=== PATIENT | female | born 1940 | race Asian ===

== ENCOUNTER → 2017-03-21 | Outpatient (CLI) | payer MEDICARE, OTHER ==
[~2017-03-21] MED LIST: GLUC500T12 PO; MULT1CAP42 PO; OMEP20 PO; PENI500T2 PO; PSEU120T44 PO; SIMV5TAB6 PO; VITAD5000 PO
== END | disposition home or self-care (01) ==
LOC: RADPV 15:14
PROVIDERS: ATTEND Legal Medicine
DX: M17.11 Unilateral primary osteoarthritis, right knee (principal); M76.891 Other specified enthesopathies of right lower limb, excluding foot

== ENCOUNTER 2017-04-19 22:48 | Emergency (ER) | payer MEDICARE, OTHER ==
[~2017-04-19] VITALS: Ht 157.5 cm; Wt 50.9 kg
[~2017-04-19 22:48] MED LIST changes: -PENI500T2 PO; -PSEU120T44 PO
[2017-04-19] MEDS ORDERED: PSEU120T44 PO (22:56)
[2017-04-19] MEDS ORDERED: PENI500T2 PO (22:56)
[2017-04-20 02:12] VITALS: BP 144/74
[2017-04-20] MEDS ORDERED: IBUPROFEN 600 MG TABLET PO ONE (02:15)
[2017-04-20] MEDS ORDERED: CYCLOBENZAPRINE HCL 10 MG TABLET PO ONE (02:15)
== END 2017-04-20 03:20 | disposition home or self-care (01) ==
LOC: EMS 22:50
DX: M62.838 Other muscle spasm (principal); E78.00 Pure hypercholesterolemia, unspecified; K21.9 Gastro-esophageal reflux disease without esophagitis
CPT/HCPCS: 99283

== ENCOUNTER 2017-04-22 15:59 | Emergency (ER) | payer MEDICARE, OTHER ==
[~2017-04-22] VITALS: Ht 165.1 cm; Wt 56.8 kg
[~2017-04-22 15:59] MED LIST changes: +PENI500T2 PO; +PSEU120T44 PO
[2017-04-22] MEDS ORDERED: ACETAMINOPHEN/CODEINE 300-30 MG TABLET PO ONE (17:45)
[2017-04-22 19:58] VITALS: BP 125/69
== END 2017-04-22 20:03 | disposition home or self-care (01) ==
LOC: EMS 16:01
DX: M62.838 Other muscle spasm (principal); E78.00 Pure hypercholesterolemia, unspecified; K21.9 Gastro-esophageal reflux disease without esophagitis
CPT/HCPCS: 72125; 99284

== ENCOUNTER → 2018-09-19 | Outpatient (CLI) | payer MEDICARE, OTHER ==
[~2018-09-19] MED LIST changes: -PENI500T2 PO; +SIMV5TAB59 PO; -SIMV5TAB6 PO
== END | disposition home or self-care (01) ==
LOC: RADPV 10:13
PROVIDERS: ATTEND Legal Medicine
DX: M17.0 Bilateral primary osteoarthritis of knee (principal)

== ENCOUNTER 2019-02-17 16:05 | Emergency (ER) | payer MEDICARE, OTHER ==
[~2019-02-17] VITALS: Ht 157.5 cm; Wt 50.0 kg
[2019-02-17] MEDS ORDERED: LIDOCAINE 5% TRANSDERMAL PATCH TD ONE (16:45)
[2019-02-17] MEDS ORDERED: KETOROLAC TROMETHAMINE 30 MG/ML VIAL IM ONE (16:45)
[2019-02-17] MEDS ORDERED: METHOCARBAMOL 500 MG TABLET PO ONE (16:45)
[2019-02-17 16:50] VITALS: BP 141/80
== END 2019-02-17 17:56 | disposition home or self-care (01) ==
LOC: EMS 16:08
DX: M54.5 Low back pain (principal); M62.830 Muscle spasm of back; Z90.49 Acquired absence of other specified parts of digestive tract; Z79.899 Other long term (current) drug therapy
CPT/HCPCS: 96372; 99283; J1885

== ENCOUNTER → 2019-02-26 | Outpatient (CLI) | payer MEDICARE, OTHER ==
[~2019-02-26] MED LIST changes: -PSEU120T44 PO
== END | disposition home or self-care (01) ==
LOC: RADPV 10:41
PROVIDERS: ATTEND Legal Medicine
DX: M47.816 Spondylosis without myelopathy or radiculopathy, lumbar region (principal); M43.16 Spondylolisthesis, lumbar region; M48.061 Spinal stenosis, lumbar region without neurogenic claudication
CPT/HCPCS: 72100

== ENCOUNTER → 2019-04-22 | Outpatient (CLI) | payer MEDICARE, OTHER | END | disposition home or self-care (01) | LOC: LABPV 15:11 | PROVIDERS: ATTEND Legal Medicine | DX: E87.5 Hyperkalemia (principal) | CPT/HCPCS: 84132 ==

== ENCOUNTER 2019-05-09 19:09 | Emergency (ER) | payer MEDICARE, OTHER ==
[~2019-05-09] VITALS: Ht 157.5 cm; Wt 50.0 kg
[2019-05-09 20:10] LABS: APPEARANCE,URINE CLEAR (CLEAR); BILIRUBIN,URINE NEGATIVE (NEGATIVE); GLUCOSE, URINE (UA) NEGATIVE (NEGATIVE); KETONES,URINE NEGATIVE (NEGATIVE); LEUKOCYTE ESTERASE ,URINE NEGATIVE (NEGATIVE); NITRATE,URINE NEGATIVE (NEGATIVE); OCCULT BLOOD,URINE TRACE (NEGATIVE); PH,URINE 6.5 (5.0-8.0); PROTEIN,URINE NEGATIVE (NEGATIVE); UROBILINOGEN,URINE 0.2 mg/dL (<=1.0)
[2019-05-09 20:20] LABS: BACTERIA,URINE None Seen /HPF (None Seen); WBC,URINE 0-2 /HPF (0-5)
[2019-05-09 20:21] LABS: SQUAMOUS EPITHELIAL CELL,UR Few /LPF (None Seen)
[2019-05-09] MEDS ORDERED: LIDOCAINE 5% TRANSDERMAL PATCH TD ONE (22:30)
[2019-05-09] MEDS ORDERED: CYCLOBENZAPRINE HCL 10 MG TABLET PO ONE (22:30)
[2019-05-09 22:53] VITALS: BP 148/82
== END 2019-05-09 23:08 | disposition home or self-care (01) ==
LOC: EMS 19:10
DX: M54.5 Low back pain (principal); E78.00 Pure hypercholesterolemia, unspecified; K21.9 Gastro-esophageal reflux disease without esophagitis; Z90.49 Acquired absence of other specified parts of digestive tract; Z79.899 Other long term (current) drug therapy

== ENCOUNTER 2023-11-17 09:43 | Emergency (ER) | payer MEDICARE, OTHER ==
[~2023-11-17] VITALS: Ht 152.4 cm; Wt 59.1 kg
[~2023-11-17 09:43] MED LIST changes: +ACET-2247 PO; +LIDO700A15 TP
[2023-11-17] MEDS ORDERED: ATOR10TA PO (09:54)
[2023-11-17 10:29] LABS: BASOPHILS % (AUTO) 0.9 % (0.0-2.0); EOSINOPHILS % (AUTO) 2.5 % (1.0-6.0); HEMATOCRIT 36.6 % (36-46); HEMOGLOBIN 11.9 g/dL (12.0-16.0); LYMPHOCYTES # (AUTO) 1.2 K/uL (1.0-4.8); LYMPHOCYTES % (AUTO) 16.9 % (22.0-44.0); MEAN CORPUSCULAR HEMOGLOBIN 30.5 pg (26.0-34.0); MEAN CORPUSCULAR HGB CONC 32.5 G/dL (31.0-37.0); MEAN CORPUSCULAR VOLUME 94 fL (80-100); MONOCYTES # (AUTO) 0.6 K/uL (0.1-1.0); MONOCYTES % (AUTO) 8.2 % (2.0-9.0); NEUTROPHILS # (AUTO) 5.2 K/uL (1.8-7.7); NEUTROPHILS % (AUTO) 71.5 % (40.0-70.0); PLATELET COUNT (AUTO) 459 K/uL (150-450); RED CELL DISTRIBUTION WIDTH 14.3 % (11.5-14.5); WHITE BLOOD COUNT (AUTO) 7.3 K/uL (4.5-11.0)
[2023-11-17 10:35] LABS: CALCIUM, TOTAL 9.6 mg/dL (8.8-10.5); CREATININE 0.98 mg/dL (0.60-1.30)
[2023-11-17] MEDS ORDERED: DOXY-354 PO (11:23)
[2023-11-17] MEDS: ACETAMINOPHEN 325 MG TABLET PO ONE (11:30)
[2023-11-17] MEDS: DOXYCYCLINE HYCLATE 100 MG TABLET PO ONE (11:31)
[2023-11-17 11:34] VITALS: BP 132/68; PULSE 79; RESP 19; TEMP 97.7
[2023-11-17 11:36] LABS: INFLUENZA A-RTPCR,COMBO NEGATIVE (NEGATIVE); INFLUENZA B-RTPCR,COMBO NEGATIVE (NEGATIVE); RESPIRATORY SYNCYTIAL VRS-PCR NEGATIVE (NEGATIVE); SARS COVID19 RTPCR, COMBO NEGATIVE (NEGATIVE)
== END 2023-11-17 11:43 | disposition home or self-care (01) ==
LOC: EMS 09:43
DX: J18.9 Pneumonia, unspecified organism (principal); R05.9 Cough, unspecified; R09.81 Nasal congestion; K21.9 Gastro-esophageal reflux disease without esophagitis; Z20.822 Contact with and (suspected) exposure to COVID-19
CPT/HCPCS: 99284; 0241U; 71045; 80048; 85025; 36415

== ENCOUNTER 2024-04-12 08:21 | Emergency (ER) | payer MEDICARE, OTHER ==
[~2024-04-12] VITALS: Ht 157.5 cm; Wt 46.0 kg
[~2024-04-12 08:21] MED LIST changes: +ATOR10TA PO; +DOXY-354 PO; -GLUC500T12 PO; -LIDO700A15 TP; -MULT1CAP42 PO; -OMEP20 PO; -SIMV5TAB59 PO; -VITAD5000 PO
[2024-04-12 08:34] VITALS: TEMP 97.4
[2024-04-12] MEDS: KETOROLAC TROMETHAMINE 30 MG/ML VIAL IM ONE (09:21)
[2024-04-12] MEDS ORDERED: IBUP-1506 PO (09:23)
[2024-04-12 09:30] VITALS: BP 144/64; PULSE 67; RESP 18; O2SAT 98
== END 2024-04-12 09:41 | disposition home or self-care (01) ==
LOC: EMS 08:28
DX: M17.11 Unilateral primary osteoarthritis, right knee (principal); K21.9 Gastro-esophageal reflux disease without esophagitis; E78.00 Pure hypercholesterolemia, unspecified; Z90.49 Acquired absence of other specified parts of digestive tract; Z79.899 Other long term (current) drug therapy
CPT/HCPCS: 99283; 96372; J1885